=== PATIENT | female | born 1975 | race Two or more races ===

== ENCOUNTER 2021-10-21 14:02 | Emergency (ER) | payer OTHER ==
[2021-10-21 14:26] VITALS: BP 126/76; PULSE 79; TEMP 98; BMI 31.1
[2021-10-21] MEDS ORDERED: FLUORESCEIN NA 1 EA STRIP OS ONE (15:17)
[2021-10-21] MEDS ORDERED: TETRACAINE 0.5% HCL 0.6ML DROPPER.BOTTLE OS ONE (15:17)
[2021-10-21] MEDS ORDERED: TETRACAINE 0.5% OPHTH SOLN 2 ML BOTTLE ONE (15:20)
[2021-10-21] MEDS ORDERED: FLUORESCEIN NA 1 EA STRIP ONE (15:20)
[2021-10-21] MEDS ORDERED: ERYTHROMYCIN 0.5% OPHTHALMIC OINTMENT 3.5 GM TUBE OS ONE (15:33)
[2021-10-21] MEDS ORDERED: ERYTHROMYCIN 0.5% OPHTHALMIC OINTMENT 3.5 GM TUBE ONE (15:35)
== END 2021-10-21 15:47 | disposition home or self-care (01) ==
LOC: FER 14:02
DX: T26.92XA Corrosion of left eye and adnexa, part unspecified, initial encounter (principal)
CPT/HCPCS: 99283-25